=== PATIENT | male | born 1950 | race Caucasian/White ===

== ENCOUNTER → 2017-06-21 | Outpatient (CLI) | payer OTHER ==
--- NOTE | 2017-06-21 11:37 | KCIC ---
Bilateral lower extremity arterial ultrasound History: Leg pain, discoloration, edema, hair loss Findings: Multiple grayscale, color, and duplex spectral analysis sonographic images were acquired of the lower extremity arteries bilaterally. There are no previous similar exams. There are triphasic and biphasic waveforms of the lower extremity arteries bilaterally. There is minimal plaque. While there are some symmetric increased velocities of the arteries of the thighs bilaterally, no significant focal stenosis is demonstrated. Velocities in cm/sec: RIGHT Common femoral artery 220 Profunda femoris artery 167 Proximal SFA 161 Mid SFA 167 Distal SFA 145 45 Popliteal artery 171 Dorsalis pedis artery 93 Posterior tibial artery 98 Anterior tibial artery 79 Peroneal artery 97 LEFT: Common femoral artery 229 Profunda femoris artery 170 Proximal SFA 170 Mid SFA 159 Distal SFA 141 Popliteal artery 122 Anterior tibial artery 70 Dorsalis pedis artery 100 Posterior tibial artery 85 Peroneal artery 109 Impression: 1. No focal stenosis or vessel occlusion is demonstrated. There is minimal plaque. Electronically signed by: Kahlil Tejada MD (06/21/2017 11:34 AM) [id number]
== END | disposition home or self-care (01) ==
LOC: KCIC US 09:40
PROVIDERS: ATTEND Family Medicine
DX: M79.604 Pain in right leg (principal); M79.605 Pain in left leg; L65.9 Nonscarring hair loss, unspecified; R60.0 Localized edema
CPT/HCPCS: 93925